=== PATIENT | male | born 1965 | race Caucasian/White ===

== ENCOUNTER → 2019-10-12 | Outpatient (CLI) | payer OTHER | LOC: COL.RAD 09-28 10:30 | DX: N45.1 Epididymitis (principal); N50.3 Cyst of epididymis; N43.3 Hydrocele, unspecified ==

== ENCOUNTER 2021-02-27 22:09 | Emergency (ER) | payer SELFPAY ==
[2021-02-27 22:10] VITALS: BP 185/92; PULSE 107; TEMP 97.6
== END 2021-02-28 00:47 | disposition home or self-care (01) ==
LOC: COL.ER 22:09
DX: S09.90XA Unspecified injury of head, initial encounter (principal); S01.01XA Laceration without foreign body of scalp, initial encounter; F17.200 Nicotine dependence, unspecified, uncomplicated; W17.89XA Other fall from one level to another, initial encounter; Y92.838 Other recreation area as the place of occurrence of the external cause

== ENCOUNTER → 2021-03-14 | Emergency (ER) | payer SELFPAY ==
[2021-03-14 11:10] VITALS: BP 193/98; PULSE 92; TEMP 98.4
== END ==
LOC: COL.ER 11:03
DX: Z48.02 Encounter for removal of sutures (principal)